=== PATIENT | female | born 1975 | race Caucasian/White ===

== ENCOUNTER 2022-02-15 10:59 | Emergency (ER) | payer OTHER, SELFPAY ==
[2022-02-15 11:15] VITALS: BP 113/72; PULSE 81; RESP 16; TEMP 37.2; O2SAT 99; BMI 22.4
[2022-02-15] MEDS: LIDOCAINE PATCH 1 EACH ADH..PATCH TOP (15:53)
[2022-02-15] MEDS: OXYCODONE/ACETAMINOPHEN 5/325 TABLET 1 TAB PO (15:53)
[2022-02-15] MEDS: methocarbamoL 500 MG TABLET 750 MG PO (15:54)
[2022-02-15 15:58] VITALS: BP 118/70; PULSE 69; RESP 16
[2022-02-15 18:08] VITALS: BP 108/62; PULSE 66; O2SAT 98
--- NOTE | 2022-02-15 21:15 | ED_ITS ---
HPI - Back Pain/Injury <Nivia Haro PA-C - Last Filed: 02/15/22 21:21> General Chief Complaint: Back Pain/Injury Stated Complaint: Severe back pain x3 days Time Seen by Provider: 02/15/22 14:22 Source: patient History of Present Illness HPI Narrative: 46-year-old female with no reported past medical history presents to the ED with 1 week of lower back pain. Patient states that she was getting up from sitting on a bench, when she felt her back gave out. Patient denies saddle paresthesias, fever, chills, urinary hesitancy, urinary incontinence, bowel incontinence. Patient denies numbness, tingling, weakness. Patient states that the pain is restricted to her lower back, does not travel. Patient states that she has a history of her back going out about once a year. Related Data Allergies Allergy/AdvReac Type Severity Reaction Status Date / Time No Known Drug Allergies Allergy Verified 02/15/22 11:15 Review of Systems <Nivai Haro PA-C - Last Filed: 02/15/22 21:21> Review of Systems ROS Unobtainable: All systems reviewed & are unremarkable except as noted in HPI and below Constitutional Constitutional: Denies chills, Denies fatigue, Denies fever(s), Denies frequent falls, Denies lethargy and Denies weakness Eyes Eyes: Denies change in vision, Denies eye discharge, Denies irritation and Denies loss of vision ENT Ears, Nose, Mouth, and Throat: Denies change in voice, Denies dizziness, Denies neck pain, Denies sore throat and Denies throat swelling Cardiovascular Cardiovascular: Denies chest pain, Denies irregular heart rhythm, Denies lightheadedness, Denies palpitations, Denies dyspnea, Denies dyspnea on exertion and Denies orthopnea Respiratory Respiratory: Denies cough, Denies dyspnea, Denies dyspnea on exertion and Denies wheezing Gastrointestinal Gastrointestinal: Denies abdominal pain, Denies change in bowel habits, Denies diarrhea, Denies nausea and Denies vomiting Genitourinary Genitourinary: Denies hematuria, Denies flank pain, Denies urinary incontinence and Denies urinary urgency Musculoskeletal Musculoskeletal: Reports back pain, Denies muscle weakness, Denies neck pain, Denies numbness and Denies tingling Integumentary/Breasts Skin/Breast: Denies pruritus, Denies erythema, Denies rash and Denies wounds Neurologic Neurologic: Denies behavioral changes, Denies confusion, Denies dizziness, Denies frequent falls, Denies loss of vision, Denies numbness, Denies tingling and Denies weakness Psychiatric Psychiatric: Denies anxiety, Denies behavioral changes, Denies confusion, Denies depression, Denies homicidal ideation and Denies suicidal ideation Endocrine Endocrine: Denies fatigue, Denies flushing and Denies palpitations Hematologic/Lymphatic Hematologic/Lymphatic: Denies easy bruising Allergic/Immunologic Allergic/Immunologic: Denies urticaria, Denies throat swelling and Denies wheezing Patient History <Nivia Haro PA-C - Last Filed: 02/15/22 21:21> Social History Smoking Status: Unknown if ever smoked Smoking Status: Unknown if ever smoked alcohol intake frequency: holidays/special occasions only Substance Use Type: does not use Exam <Nivia Haro PA-C - Last Filed: 02/15/22 21:21> Narrative Exam Narrative: Const General:?cooperative, healthy appearing and comfortable [facility] Head:?normal to inspection Ears:?hearing grossly normal bilaterally Nose:?external nose normal Face and sinus:?normal facial exam and sinuses nontender Mouth:?oral mucosae normal Throat:?posterior oropharynx normal Eyes General:?appearance normal, both eyes and all related structures Neck Neck:?normal visual inspection and no lymphadenopathy noted Resp Effort & Inspection:?normal respiratory effort Auscultation:?clear to auscultation bilaterally Cardio Rate:?regular rate Rhythm:?regular rhythm Musculoskeletal No midline tenderness to palpation. No paraspinal tenderness to palpation. Strength and sensation intact. Gait normal, albeit limited by pain.. Full range of motion. Patient neurovascularly intact. Neuro General:?patient alert, patient awake and patient oriented x3 Initial Vital Signs Initial Vital Signs: Vital Signs Temperature 99.0 F 02/15/22 11:15 Pulse Rate 81 02/15/22 11:15 Respiratory Rate 16 02/15/22 11:15 Blood Pressure 113/72 02/15/22 11:15 Pulse Oximetry 99 02/15/22 11:15 Oxygen Delivery Method 02/15/22 11:15 <Goyo Blanca MD - Last Filed: 02/21/22 08:28> Initial Vital Signs Initial Vital Signs: Vital Signs Temperature 99.0 F 02/15/22 11:15 Pulse Rate 81 02/15/22 11:15 Respiratory Rate 16 02/15/22 11:15 Blood Pressure 113/72 02/15/22 11:15 Pulse Oximetry 99 02/15/22 11:15 Oxygen Delivery Method 02/15/22 11:15 Course <Nivia Haro PA-C - Last Filed: 02/15/22 21:21> Orders Ordered: Discontinued Medications Lidocaine (Lidocaine Patch 1 Each Adh..Patch) 1 each TOP NOW ONE Stop: 02/15/22 15:36 Last Admin: 02/15/22 15:53 Dose: 1 each Documented By: ANGELIA Methocarbamol (Methocarbamol 500 Mg Tablet) 750 mg PO NOW ONE Stop: 02/15/22 15:36 Last Admin: 02/15/22 15:54 Dose: 750 mg Documented By: ANGELIA Oxycodone/Acetaminophen (Oxycodone/Acetaminophen 5/325 Tablet) 1 tab PO NOW ONE Stop: 02/15/22 15:36 Last Admin: 02/15/22 15:53 Dose: 1 tab Documented By: ANGELIA Vital Signs Vital signs: Vital Signs - 8 hr 02/15/22 15:58 02/15/22 18:08 Pulse Rate 69 66 Respiratory Rate 16 Blood Pressure 118/70 108/62 Pulse Oximetry 98 Oxygen Delivery Method Room Air <Goyo Blanca MD - Last Filed: 02/21/22 08:28> Orders Ordered: Discontinued Medications Lidocaine (Lidocaine Patch 1 Each Adh..Patch) 1 each TOP NOW ONE Stop: 02/15/22 15:36 Last Admin: 02/15/22 15:53 Dose: 1 each Documented By: ANGELIA Methocarbamol (Methocarbamol 500 Mg Tablet) 750 mg PO NOW ONE Stop: 02/15/22 15:36 Last Admin: 02/15/22 15:54 Dose: 750 mg Documented By: ANGELIA Oxycodone/Acetaminophen (Oxycodone/Acetaminophen 5/325 Tablet) 1 tab PO NOW ONE Stop: 02/15/22 15:36 Last Admin: 02/15/22 15:53 Dose: 1 tab Documented By: ANGELIA Vital Signs Vital signs: Vital Signs - 8 hr 02/15/22 15:58 02/15/22 18:08 Pulse Rate 69 66 Respiratory Rate 16 Blood Pressure 118/70 108/62 Pulse Oximetry 98 Oxygen Delivery Method Room Air MDM - Back Pain/Injury <Nivia Haro PA-C - Last Filed: 02/15/22 21:21> MDM Narrative Medical decision making narrative: 46-year-old female with no reported past medical history presents to the ED with 1 week of lower back pain. Physical exam and history are reassuring. No red flag symptoms. Patient's pain was controlled with Percocet, methocarbamol. Patient was discharged home with prescription for pain medication and muscle relaxant. ED return precautions were discussed with patient. Patient verbalized understanding. Discharge Plan Departure Patient Disposition: Home Clinical Impression: Lower back pain Instructions: DI for Low Back Pain Activity Restrictions/Additional Instructions: You were evaluated today for lower back pain. Your physical exam was reassuring, unlikely that anything is fractured or dislocated. Your symptoms are likely due to a musculoskeletal sprain/strain or a disc injury. Your symptoms improved significantly with Percocet and methocarbamol. You are being prescribed Percocet and methocarbamol for the next 3 days. Please follow-up with your PCP as soon as possible for further evaluation and referral to physical therapy. Return to the ED if you experience any numbness, tingling, weakness, urinary problems, stool incontinence. Visit Report Forms: Patient Portal/API <Goyo Blanca MD - Last Filed: 02/21/22 08:28> Cosign ED Attending Cosignature Attestation: I was immediately available in the department for consultation. ?This documentation has been reviewed and I agree with assessment and plan. Supervised by Goyo Blanca MD
== END 2022-02-15 18:14 | disposition home or self-care (01) ==
PROVIDERS: Emergency Provider Student in an Organized Health Care Education/Training Program
DX: M54.50 Low back pain, unspecified (principal)
CPT/HCPCS: 99283